=== PATIENT | male | born 1940 | race Caucasian/White ===

== ENCOUNTER 2016-06-17 13:26 | Inpatient (IN) | payer OTHER ==
[~2016-06-17] VITALS: Ht 180.3 cm; Wt 75.0 kg
[~2016-06-17 13:26] MED LIST: ALREX 0.2%100 DROP/5 BOTH EYES; ASPIRIN325 MG PO; COLACE100 MG PO; CONSTULOSE10 GM/15 M PO; DEXAMETHASONE4 MG PO; DITROPAN5 MG PO; DORYX50 MG PO; DOXYCYCLINE HYC50 MG PO; DURAGESIC12 MCG TD; FLOMAX0.4 MG PO; IMODIUM MS REL1 EACH PO; MIRALAX17 GM PO; NEURONTIN300 MG PO; ONDANSETRON HCL8 MG PO; OXYCODONE HCL10 MG PO; PERCOCET 5/31 TABLET PO; PROCHLORPERAZIN10 MG PO; PYRIDIUM100 MG PO; RESTASIS 01 DROP/0.4 BOTH EYES; SENNA8.6 MG PO; SPIRIVA1 INHALATI IH; SYMBICORT60 INHALAT IH; TYLENOL EXTRA500 MG PO
[2016-06-17 14:48] VITALS: BP 106/58
[2016-06-17 15:45] LABS: HEMATOCRIT 38.9 % (38.0-50.0); MCH 32.1 PG (29.0-34.0); MCHC 32.4 G/DL (30.0-36.0); MCV 99.2 FL (86-99); MEAN PLAT.VOLUME 10.3 uM^3 (9.0-12.4); PLATELET COUNT 119 K/uL (156-360); RBC DIS.WIDTH-CV 13.8 % (11.8-14.6); RBC DIS.WIDTH-SD 48.7 % (39-53); RED BLOOD COUNT 3.92 M/uL (4.00-5.50)
[2016-06-17 16:01] LABS: ANION GAP 6 MEQ/L (2-14); CHLORIDE 100 MEQ/L (99-109); MAGNESIUM 2.1 mg/dl (1.3-2.7); POTASSIUM 4.6 MEQ/L (3.7-5.4); SAMPLE HEMOLYSIS CHECK 0; SAMPLE ICTERIC CHECK 0; SAMPLE LIPEMIA CHECK 0; SODIUM 140 MEQ/L (136-147); TOTAL BILIRUBIN 0.3 MG/DL (0.0-1.0)
[2016-06-17 16:07] LABS: ALKALINE PHOSPHATASE 74 IU/L (3-129); GFR ESTIMATE (CALCULATED) 57 mL/min/; GLUCOSE 88 mg/dL (70-99); UREA NITROGEN (BUN) 43 mg/dL (9-23)
[2016-06-17 16:26] LABS: ERTH.SED.RATE 32 MM/HR (0-20)
[2016-06-17 16:38] VITALS: BP 115/66
[2016-06-17 17:01] LABS: WHITE BLOOD COUNT 7.1 K/uL (4.1-10.2)
[2016-06-17 20:13] VITALS: BP 107/54
[2016-06-18 00:08] VITALS: BP 114/63
[2016-06-18 04:24] VITALS: BP 115/57
[2016-06-18 06:04] LABS: ANION GAP 7 MEQ/L (2-14); CHLORIDE 99 MEQ/L (99-109); GFR ESTIMATE (CALCULATED) 57 mL/min/; GLUCOSE 82 mg/dL (70-99); POTASSIUM 4.5 MEQ/L (3.7-5.4); SAMPLE HEMOLYSIS CHECK 0; SAMPLE ICTERIC CHECK 0; SAMPLE LIPEMIA CHECK 0; SODIUM 140 MEQ/L (136-147); UREA NITROGEN (BUN) 44 mg/dL (9-23)
[2016-06-18 07:42] VITALS: BP 114/72
[2016-06-18 11:54] VITALS: BP 111/67
[2016-06-18 13:29] LABS: HEMATOCRIT 35.1 % (38.0-50.0); MCH 31.8 PG (29.0-34.0); MCHC 31.9 G/DL (30.0-36.0); MCV 99.7 FL (86-99); MEAN PLAT.VOLUME 10.5 uM^3 (9.0-12.4); PLATELET COUNT 121 K/uL (156-360); RBC DIS.WIDTH-CV 13.7 % (11.8-14.6); RBC DIS.WIDTH-SD 48.6 % (39-53); RED BLOOD COUNT 3.52 M/uL (4.00-5.50); WHITE BLOOD COUNT 6.6 K/uL (4.1-10.2)
[2016-06-18 15:55] VITALS: BP 108/56
[2016-06-18 20:27] VITALS: BP 112/62
[2016-06-19 00:42] VITALS: BP 106/62
[2016-06-19 03:49] VITALS: BP 124/61
[2016-06-19 08:17] VITALS: BP 112/57
[2016-06-19] MEDS ORDERED: LIDOCAINE700 MG TD (13:39)
[2016-06-19 13:40] VITALS: BP 104/66
[2016-06-19] MEDS ORDERED: AUGMENTIN875 MG PO (13:42)
[2016-06-19] MEDS ORDERED: LASIX20 MG PO (13:42)
[2016-06-21] MEDS ORDERED: ENOXAPARIN120 MG/0.8 SC (11:57)
[2016-06-21] MEDS ORDERED: SYMBICORT60 INHALAT IH (11:58)
[2016-06-21] MEDS ORDERED: FUROSEMIDE40 MG PO (12:00)
== END 2016-06-19 14:54 | disposition home health service (06) | DRG 603 ==
LOC: 3EAST 14:00
PROVIDERS: Hospitalist; Internal Medicine
DX: L03.115 Cellulitis of right lower limb (principal); N13.1 Hydronephrosis with ureteral stricture, not elsewhere classified; C79.51 Secondary malignant neoplasm of bone; D69.6 Thrombocytopenia, unspecified; J44.9 Chronic obstructive pulmonary disease, unspecified; C67.9 Malignant neoplasm of bladder, unspecified; L03.116 Cellulitis of left lower limb; Z86.718 Personal history of other venous thrombosis and embolism; R60.0 Localized edema; Z92.21 Personal history of antineoplastic chemotherapy; Z92.3 Personal history of irradiation; Z96.0 Presence of urogenital implants; K59.00 Constipation, unspecified; M54.9 Dorsalgia, unspecified; Z87.891 Personal history of nicotine dependence; Z09 Encounter for follow-up examination after completed treatment for conditions other than malignant neoplasm
CPT/HCPCS: 74176; 80048; 80053; 81003; 83735; 83880; 85025; 85027; 85651; 87040; 93925; 93970; 94640; 94640 76; J0690; J1650; J1940

== ENCOUNTER 2016-07-08 14:27 | Inpatient (IN) | payer OTHER ==
[~2016-07-08] VITALS: Ht 180.3 cm; Wt 84.0 kg
[~2016-07-08 14:27] MED LIST changes: +AUGMENTIN875 MG PO; +ENOXAPARIN120 MG/0.8 SC; +FUROSEMIDE40 MG PO; +LASIX20 MG PO; +LIDOCAINE700 MG TD
[2016-07-08 15:26] LABS: EOSINOPHIL (%) 0.6 % (0-5); EOSINOPHIL COUNT 0.1 K/uL (0-0.3); HEMATOCRIT 27.8 % (38.0-50.0); IMMATURE GRANULOCYTE (%) 0.8 % (0.0-0.7); IMMATURE GRANULOCYTE COUNT 0.1 K/uL; INSTRUMENT ABS NEUTROPHIL CT 6.6 K/uL; LYMPHOCYTE COUNT 0.6 K/uL (1.0-2.8); MCH 33.3 PG (29.0-34.0); MCHC 32.4 G/DL (30.0-36.0); MEAN PLAT.VOLUME 10.7 uM^3 (9.0-12.4); MONOCYTE (%) 13.8 % (3-12); MONOCYTE COUNT 1.2 K/uL (0-0.8); NEUTROPHIL (%) 77.2 % (45-76); NEUTROPHIL COUNT 6.6 K/uL (1.8-6.4); RBC DIS.WIDTH-CV 15.3 % (11.8-14.6); RBC DIS.WIDTH-SD 53.6 % (39-53)
[2016-07-08 15:33] LABS: PLATELET COUNT 514 K/uL (156-360); WHITE BLOOD COUNT 8.6 K/uL (4.1-10.2)
[2016-07-08 15:37] LABS: CHLORIDE 101 mEq/L (99-109); POTASSIUM 4.8 mEq/L (3.7-5.4); SODIUM 140 mEq/L (136-147)
[2016-07-08 15:39] LABS: GLUCOSE 103 mg/dL (70-99)
[2016-07-08 15:41] LABS: ANION GAP 12 MEQ/L (2-14); TOTAL BILIRUBIN 0.2 mg/dL (0.0-1.0)
[2016-07-08 15:43] LABS: ALKALINE PHOSPHATASE 106 IU/L (3-129); GFR ESTIMATE (CALCULATED) 37 mL/min/
[2016-07-08 15:44] LABS: UREA NITROGEN (BUN) 34 mg/dL (9-23)
[2016-07-08 19:41] LABS: ADD MIUA? YES; BILIRUBIN NEGATIVE; BLOOD TRACE; COLOR YELLOW ((YELLOW)); GLUCOSE (STRIP) NEGATIVE; KETONES NEGATIVE; LEUKOCYTES SMALL; NITRITE NEGATIVE; PH, URINE 7.5 (5-8); PROTEIN (STRIP) NEGATIVE; SPECIFIC GRAVITY 1.014 (1.000-1.030); UROBILINOGEN 0.2 MG/DL (0.2-1.0)
[2016-07-08 19:42] LABS: BACTERIA 1+ /HPF; EPITHELIAL CELLS 2+ /HPF; MUCUS RARE /LPF; OTHER RENAL CELLS; RED BLOOD CELLS 0-5 /HPF (0-5); UCUL ADDED? NO; WHITE BLOOD CELLS 0-5 /HPF (0-5)
[2016-07-09] VITALS (7 sets, daily range): BP systolic 103–132; BP diastolic 63–72
[2016-07-09 06:32] LABS: EOSINOPHIL (%) 1.2 % (0-5); EOSINOPHIL COUNT 0.1 K/uL (0-0.3); HEMATOCRIT 33.6 % (38.0-50.0); IMMATURE GRANULOCYTE (%) 1.2 % (0.0-0.7); IMMATURE GRANULOCYTE COUNT 0.1 K/uL; INSTRUMENT ABS NEUTROPHIL CT 4.1 K/uL; LYMPHOCYTE COUNT 0.7 K/uL (1.0-2.8); MCH 32.4 PG (29.0-34.0); MCV 104.7 FL (86-99); MEAN PLAT.VOLUME 10.6 uM^3 (9.0-12.4); MONOCYTE (%) 17.9 % (3-12); MONOCYTE COUNT 1.1 K/uL (0-0.8); NEUTROPHIL (%) 67.6 % (45-76); NEUTROPHIL COUNT 4.1 K/uL (1.8-6.4); PLATELET COUNT 413 K/uL (156-360); RBC DIS.WIDTH-CV 15.2 % (11.8-14.6); RBC DIS.WIDTH-SD 55.9 % (39-53); RED BLOOD COUNT 3.21 M/uL (4.00-5.50)
[2016-07-09 06:54] LABS: ANION GAP 5 MEQ/L (2-14); CHLORIDE 99 MEQ/L (99-109); GFR ESTIMATE (CALCULATED) 37 mL/min/; GLUCOSE 80 mg/dL (70-99); POTASSIUM 4.6 MEQ/L (3.7-5.4); SAMPLE HEMOLYSIS CHECK 0; SAMPLE ICTERIC CHECK 0; SAMPLE LIPEMIA CHECK 0; SODIUM 140 MEQ/L (136-147); UREA NITROGEN (BUN) 34 mg/dL (9-23)
[2016-07-10] VITALS (7 sets, daily range): BP systolic 108–136; BP diastolic 55–67
[2016-07-10 07:19] LABS: ANION GAP 8 MEQ/L (2-14); CHLORIDE 100 MEQ/L (99-109); GFR ESTIMATE (CALCULATED) 42 mL/min/; GLUCOSE 83 mg/dL (70-99); POTASSIUM 4.9 MEQ/L (3.7-5.4); SAMPLE HEMOLYSIS CHECK 0; SAMPLE ICTERIC CHECK 0; SAMPLE LIPEMIA CHECK 0; SODIUM 141 MEQ/L (136-147); UREA NITROGEN (BUN) 30 mg/dL (9-23)
[2016-07-10 07:49] LABS: HEMATOCRIT 34.2 % (38.0-50.0); MCH 32.8 PG (29.0-34.0); MCHC 31.3 G/DL (30.0-36.0); MCV 104.9 FL (86-99); MEAN PLAT.VOLUME 10.8 uM^3 (9.0-12.4); PLATELET COUNT 449 K/uL (156-360); RBC DIS.WIDTH-CV 15.4 % (11.8-14.6); RBC DIS.WIDTH-SD 55.5 % (39-53); RED BLOOD COUNT 3.26 M/uL (4.00-5.50); WHITE BLOOD COUNT 6.1 K/uL (4.1-10.2)
[2016-07-11 03:58] VITALS: BP 127/69
[2016-07-11 06:06] LABS: ALKALINE PHOSPHATASE 84 IU/L (3-129); ANION GAP 7 MEQ/L (2-14); CHLORIDE 103 MEQ/L (99-109); GFR ESTIMATE (CALCULATED) 48 mL/min/; GLUCOSE 86 mg/dL (70-99); POTASSIUM 4.2 MEQ/L (3.7-5.4); SAMPLE HEMOLYSIS CHECK 0; SAMPLE ICTERIC CHECK 0; SAMPLE LIPEMIA CHECK 0; SODIUM 139 MEQ/L (136-147); TOTAL BILIRUBIN 0.4 MG/DL (0.0-1.0); UREA NITROGEN (BUN) 26 mg/dL (9-23)
[2016-07-11 07:42] VITALS: BP 127/62
[2016-07-11 11:16] VITALS: BP 106/59
[2016-07-11 15:19] VITALS: BP 141/83
[2016-07-11 19:39] VITALS: BP 114/61
[2016-07-12 00:01] VITALS: BP 117/65
[2016-07-12 04:02] VITALS: BP 123/68
[2016-07-12 06:59] LABS: HEMATOCRIT 33.2 % (38.0-50.0); MCH 33.1 PG (29.0-34.0); MCHC 31.6 G/DL (30.0-36.0); MCV 104.7 FL (86-99); MEAN PLAT.VOLUME 10.6 uM^3 (9.0-12.4); PLATELET COUNT 352 K/uL (156-360); RBC DIS.WIDTH-CV 15.3 % (11.8-14.6); RBC DIS.WIDTH-SD 57.1 % (39-53); RED BLOOD COUNT 3.17 M/uL (4.00-5.50); WHITE BLOOD COUNT 6.2 K/uL (4.1-10.2)
[2016-07-12 07:21] LABS: ANION GAP 7 MEQ/L (2-14); CHLORIDE 104 MEQ/L (99-109); GFR ESTIMATE (CALCULATED) 48 mL/min/; GLUCOSE 87 mg/dL (70-99); POTASSIUM 4.7 MEQ/L (3.7-5.4); SAMPLE HEMOLYSIS CHECK 0; SAMPLE ICTERIC CHECK 0; SAMPLE LIPEMIA CHECK 0; SODIUM 142 MEQ/L (136-147); UREA NITROGEN (BUN) 28 mg/dL (9-23)
[2016-07-12 07:35] VITALS: BP 151/68
[2016-07-12 11:14] VITALS: BP 125/67
[2016-07-12 15:30] VITALS: BP 109/61
[2016-07-12 19:41] VITALS: BP 126/58
[2016-07-13] VITALS: BP 140/71
[2016-07-13 04:00] VITALS: BP 129/83
[2016-07-13 07:06] LABS: EOSINOPHIL (%) 2.1 % (0-5); EOSINOPHIL COUNT 0.1 K/uL (0-0.3); HEMATOCRIT 32.6 % (38.0-50.0); IMMATURE GRANULOCYTE (%) 1.2 % (0.0-0.7); IMMATURE GRANULOCYTE COUNT 0.1 K/uL; INSTRUMENT ABS NEUTROPHIL CT 4.1 K/uL; LYMPHOCYTE COUNT 0.5 K/uL (1.0-2.8); MCH 32.7 PG (29.0-34.0); MCHC 31.6 G/DL (30.0-36.0); MCV 103.5 FL (86-99); MEAN PLAT.VOLUME 9.9 uM^3 (9.0-12.4); MONOCYTE (%) 17.4 % (3-12); NEUTROPHIL COUNT 4.1 K/uL (1.8-6.4); PLATELET COUNT 321 K/uL (156-360); RBC DIS.WIDTH-CV 15.1 % (11.8-14.6); RBC DIS.WIDTH-SD 54.4 % (39-53); RED BLOOD COUNT 3.15 M/uL (4.00-5.50); WHITE BLOOD COUNT 5.8 K/uL (4.1-10.2)
[2016-07-13 07:27] LABS: ANION GAP 7 MEQ/L (2-14); CHLORIDE 106 MEQ/L (99-109); GFR ESTIMATE (CALCULATED) 57 mL/min/; GLUCOSE 87 mg/dL (70-99); POTASSIUM 4.6 MEQ/L (3.7-5.4); SAMPLE HEMOLYSIS CHECK 0; SAMPLE ICTERIC CHECK 0; SAMPLE LIPEMIA CHECK 0; SODIUM 141 MEQ/L (136-147); UREA NITROGEN (BUN) 22 mg/dL (9-23)
[2016-07-13 08:07] VITALS: BP 125/69
[2016-07-13 12:07] VITALS: BP 138/61
[2016-07-13] MEDS ORDERED: OXAYDO5 MG PO (12:16)
== END 2016-07-13 14:41 | disposition home health service (06) | DRG 300 ==
LOC: EME 14:27 → 5SOUTH 22:27 → EDOF 22:27 → 5SOUTH 07-09 00:12
PROVIDERS: Emergency Medicine; Hospitalist; Internal Medicine; Internal Medicine Nephrology; Physician Assistant Medical
DX: I87.1 Compression of vein (principal); N17.9 Acute kidney failure, unspecified; N13.6 Pyonephrosis; C79.89 Secondary malignant neoplasm of other specified sites; C79.51 Secondary malignant neoplasm of bone; E87.3 Alkalosis; E88.09 Other disorders of plasma-protein metabolism, not elsewhere classified; R60.1 Generalized edema; I89.0 Lymphedema, not elsewhere classified; G89.3 Neoplasm related pain (acute) (chronic); C67.9 Malignant neoplasm of bladder, unspecified; N18.9 Chronic kidney disease, unspecified; J44.9 Chronic obstructive pulmonary disease, unspecified; K59.00 Constipation, unspecified; F17.210 Nicotine dependence, cigarettes, uncomplicated; Z86.718 Personal history of other venous thrombosis and embolism; Z79.01 Long term (current) use of anticoagulants
CPT/HCPCS: 71010; 74176; 80048; 80053; 81003; 85025; 85027; 93306; 93975; 94640; 94640 76; 99202; 99281; 99285; J0692; J1170; J1200; J1650; J3360; J7050